=== PATIENT | male | born 1980 | race Caucasian/White ===

== ENCOUNTER 2020-12-14 03:37 | Outpatient (CLI) | payer BC, SELFPAY ==
[2020-12-15 14:17] LABS: COVID-19 RT-PCR UVMMC Result Negative (Negative)
== END 2020-12-14 03:38 | disposition home or self-care (01) ==
PROVIDERS: PCP Family Medicine; Visit Provider Family Medicine
DX: Z20.828 Contact with and (suspected) exposure to other viral communicable diseases (principal)
CPT/HCPCS: U0003

== ENCOUNTER 2023-03-22 06:13 | Day surgery (SDC) | payer BC, SELFPAY ==
[2023-03-22 06:15] VITALS: BP 145/91; PULSE 99; RESP 18; TEMP 36.5; O2SAT 100
[2023-03-22] MEDS: Cephalexin 500 MG CAP 1000 MG PO (06:45)
--- NOTE | 2023-03-22 07:38 | PDOC.DSDIS_ITS ---
Date of service: 03/22/23 Time of Service: 07:40 Discharge Plan Disposition Patient Disposition: Home Condition: Good Discharge Details Reason For Visit: Bilateral lipomas of the forearms Attending Provider: Alverto Mcneill Primary Care Provider: Lucien Ricketts Home Meds and New Rx's Prescriptions: New acetaminophen 500 mg tablet 500 mg PO Q6H PRN (Reason: pain) Qty: 60 2RF ibuprofen 600 mg tablet 600 mg PO TID PRN (Reason: pain) Qty: 60 0RF Continued cholecalciferol (vitamin D3) 3,000 unit tablet 3,000 unit PO DAILY albuterol sulfate 90 mcg/actuation HFA aerosol inhaler 2 puff inhalation Q4H PRN (Reason: shortness of breath or wheezing) Qty: 6.7 1RF Rx Instructions: Dispense brand best covered under insurance nicotine (polacrilex) [Nicorette] 2 mg gum 2 mg buccal Q2H Qty: 40 1RF Discontinued acetaminophen 325 mg tablet 325 mg PO QID PRN Discharge Instructions Additional Instructions: Lipoma Excision Discharge Instructions Activity: Gentle motion of the elbow, hand, wrist, and fingers is okay and encouraged after the first few days, but no repetitive activities nor heavy lifting. You may apply ice. Medications: - You should take Tylenol and Ibuprofen around the clock as needed for disco mfort Dressings: - The initial surgical dressing should stay in place for 2 days. It may then be removed and kept clean and dry. You should cover with a bandaide - You may shower after 2 days and get the wound wet. Follow-up: 10 days Referrals: Alverto Mcneill MD [ [facility] STAFF PHYSICIAN] - Activity:: Elevate Remove Dressings/Wound Care:: 48 hours Shower/Bathe:: 48 hours Diet:: As Tolerated Discharge Orders Discharge Orders: Discharge Order (Routine); Ordered 03/22/23 Ordered By: Quin Callahan
[2023-03-22] MEDS: Sodium Bicarbonate 50 MEQ/50 ML VIAL (07:53)
[2023-03-22] MEDS: Lidocaine 1% Multi-Dose W/EPI 1/100,000 50 ML VIAL (07:53)
[2023-03-22 08:12] VITALS: BP 154/89; PULSE 92; RESP 18; TEMP 37; O2SAT 97
--- NOTE | 2023-03-22 19:30 | ROE_ITS ---
Date of service: 03/22/23 Time of Service: 07:50 Operative Note Operative Note DATE OF PROCEDURE: 03/23/23 PRE-OP DIAGNOSIS: Bilateral Forearm Lipomas PROCEDURE: Excision of lipoma, bilateral forearm SURGEON: Alverto Mcneill ANESTHESIA TYPE: Local By Surgeon Refer to Anesthesia Record ESTIMATED BLOOD LOSS: 5 PATHOLOGY: none sent TOURNIQUET TIME: 0 COMPLICATIONS: None Patient was transported to: same day Patient's condition: stable Indications: Cliff is a 42-year-old who I saw previously in the office with lipomas of bilateral forearms. They have slowly gotten larger and become more problematic for him. He desired to have them removed. Once again I reviewed the technical features of the lipoma removal. I reviewed the risk to include bleeding, infection, pain, stiffness, damage to superficial nerves, recurrence or incomplete resection. Despite these risks, he elected to proceed. Findings: Irregularly-shaped lipomas are present in both bilateral forearms. Each 1 measured roughly 3 x 2 x 2 cm. Procedure Description: Cliff was greeted in the preoperative holding area. His identity was confirmed the correct site identified and marked. The consent was reviewed the patient and signed. Attempting to the operating room. Preflight antibiotics were given orally. A timeout was performed for safe surgery. Starting with the left forearm, the surgical site was prepped with ChloraPrep. Standard draping was performed around the surgical site. This was then anesthetized with 1% lidocaine with epinephrine buffered with sodium bicarbonate. Once it is set up fully the skin was incised longitudinally overlying the central portion of the lipoma. Blunt dissection was carried down deeper where the capsule of the lipoma was encountered. Once the lipoma was visible through the capsule it was expressed from the wound. Gentle traction of the lipoma was able to fully release adhesions between the lipoma and surrounding tissues. This was able to be removed in whole measuring roughly 3 x 2 x 2 cm although it was quite irregular in shape. Had a normal lipoma appearance without any stranding or adhesions or vascularity or internal septations apparent. The wound was then irrigated. The skin was closed with a 4-0 Monocryl in a running, subcuticular pattern. This was reinforced with skin glue. This area was dressed with 4 x 4's, Kerlix and Forest wrap for some compression on the site. Turning to the right forearm, the patient was rotated within the room. The right arm was placed on a hand table. Surgical site was prepped ChloraPrep. Standard draping was made around the proposed incision site. A longitudinal 2 to 3 cm incision was made overlying the skin. Blunt dissection carried down to the capsule of the lipoma was identified and then incised. Lipoma was seen. This seemed to have slightly more extensions underneath the skin than the left- sided. Nevertheless, was able to express it through the wound and then slowly excise any adhesions between the lipoma and surrounding tissues. He was able to be removed fully with one portion breaking during the excision. However, the wound is inspected and there is no residual lipoma remaining. The wound was thoroughly irrigated. A buried 3-0 Vicryl was placed to close the deep space. The skin was closed with a running, subcuticular 4-0 Monocryl. This was reinforced skin glue. The wound was dressed with 4 x 4's, Kerlix, and Forest wrap. He tolerated the procedure well. He had no complications. [facility] a [facility] condition.
== END 2023-03-22 08:25 | disposition home or self-care (01) ==
PROVIDERS: PCP Family Medicine; Visit Provider Student in an Organized Health Care Education/Training Program
PROC: (CPT 11403; principal; 2023-03-22 07:30)
DX: D17.22 Benign lipomatous neoplasm of skin and subcutaneous tissue of left arm (principal); D17.21 Benign lipomatous neoplasm of skin and subcutaneous tissue of right arm
CPT/HCPCS: 11403 ×2

== ENCOUNTER 2024-08-07 08:27 | Outpatient (CLI) | payer BC, SELFPAY ==
--- NOTE | 2024-08-07 08:15 | RT.EKG_ITS ---
APPROVED REPORT Exam: Resting ECG Reason for Exam: hears pulse in ears Patient Location: O HR:96 bpm ECG Measurements Heart Rate 96 AXIS HI 155 P 74 QRSd 92 QRS 27 QT 342 T 43 QTc 433 Conclusion Sinus rhythm...normal P axis, V-rate 50- 99 Probable left atrial enlargement...P >50mS, <-0.10mV V1 ST elev, probable normal early repol pattern...ST elevation, age<55
== END 2024-08-07 08:28 | disposition home or self-care (01) ==
LOC: DI.KIM 08:29
PROVIDERS: PCP Family Medicine; Visit Provider Nurse Practitioner
DX: R00.2 Palpitations (principal)
CPT/HCPCS: 93010

== ENCOUNTER 2024-08-16 01:20 | Outpatient (CLI) | payer BC, SELFPAY ==
--- OUTSIDE RECORDS SUMMARY | 2024-08-16 01:28 | XMS_ITS | Encounter Summary ---
Author Organization [facility] Address [facility] [place] [address] Care Team Providers Care Casting Molder Name Role Phone Arely Landers MD Primary Care Provider [phone] Reason for Visit * Reason Onset Date Comments Medication Refill 01/10/2017 Encounter Details Date Type Department Care Team (Late st Contact Info) Description 01/10/2017 Refill [place] [id number] Taiwo Cifuentes MD [facility] [place] [address] HNP (herniated nucleus pulposus), lumbar Social History Tobacco Use Types Packs/Day Years Used Date Smoking Tobacco: Never Assessed Sex and Gender Information Value Date Recorded Sex Assigned at Not on file Gender Identity Not on file Sexual Orientation Not on file documented as of this encounter Plan of Treatment Not on file documented as of this encounter Visit Diagnoses Diagnosis HNP (herniated nucleus pulposus), lumbar Displacement of lumbar intervertebral disc without myelopathy documented in this encounter Care Teams Casting Molder Relationship Specialty Start Date End Date Arely Landers MD [address] [place] [address] PCP - General 07/27/10 03/23/17 documented as of this encounter
--- OUTSIDE RECORDS SUMMARY | 2024-08-16 01:28 | XMS_ITS | Referral Summary ---
Author Organization [facility] Address [address] [place] [address] Care Team Providers Care Medical Microbiologist Name Role Phone Unavailable Primary Care Provider Unavailabl e Social History Tobacco Use Types Packs/Day Years Used Date Smoking Tobacco: Never Assessed Sex and Gender Information Value Date Recorded Sex Assigned at Not on file Legal Sex Male 19:22 EDT Gender Identity Not on file Sexual Orientation Not on file Plan of Treatment Not on file
--- OUTSIDE RECORDS SUMMARY | 2024-08-16 01:28 | XMS_ITS | Encounter Summary ---
Author Organization [facility] Address [address] [place] [address] Care Team Providers Care Vessel Liner Name Role Phone Unavailable Primary Care Provider Unavailabl e Encounter Details Date Type Department Care Team (Late st Contact Info) Description 12/14/2020 Lab Requisition [facility] Pathology & Laboratory Medicine - [facility] [address] [place] [address] Outr Resulting Lab, Provider Social History Tobacco Use Types Packs/Day Years Used Date Smoking Tobacco: Never Assessed Sex and Gender Information Value Date Recorded Sex Assigned at Not on file Legal Sex Male 19:22 EDT Gender Identity Not on file Sexual Orientation Not on file documented as of this encounter Plan of Treatment Not on file documented as of this encounter Procedures Procedure Name Priority Date/Time Associated Diagnosis Comments ZZCOVID-19 TEST [facility] PCR Today 12/14/2020 8:13 EDT COVID-19 TESTING Routine 12/14/2020 8:13 EDT documented in this encounter Results * COVID-19 TEST [facility] PCR (12/14/2020 8:13 EDT) Swab ENTIRE NASOPHARYNX / Unknown 12/14/2020 8:13 EDT 12/14/2020 15:59 EDT us Provider Outr Resulting Lab MICROBIOLOGY - GENER AL ORDERABLES Final Result [facility] [address] [place] [address] * COVID-19 TESTING (12/14/2020 8:13 EDT) COVID-19 rt-PCR Result Negative Negative 12/15/2020 14:10 EDT [facility] Comment: This test has not been FDA cleared or approved. This test has been authorized by FDA under an EUA for use by authorized laboratories. This test has been authorized only for detection of nucleic acid from 2019-nCoV, not for any other viruses or pathogens. This test is only authorized for the duration of the declaration that circumstances exist justifying the authorization of emergency use of in vitro diagnostic tests for detection and/or diagnosis of 2019-nCoV under section 564(b)(1) of Act, 21 U.S.C ?? 360bbb-3(b) (1), unless the authorization is terminated or revoked sooner. Negative results do not preclude 2019-nCoV infection and should not be used as the sole basis for treatment or other patient management decisions. Negative results must be combined with clinical observations, patient history, and epidemiological information. Testing was performed using the annika SARS-CoV-2 assay ([employer] on the Annika 6800 System Performing Lab Annika 6800 [facility] 12/15/2020 14:10 EDT [facility] Swab 12/14/2020 8:13 EDT 12/14/2020 15:59 EDT us Provider Outr Resulting Lab MICROBIOLOGY - GENER AL ORDERABLES Final Result [facility] [address] [place] [address] documented in this encounter Visit Diagnoses Not on filedocumented in this encounter
--- OUTSIDE RECORDS SUMMARY | 2024-08-16 01:28 | XMS_ITS | Encounter Summary ---
Author Organization [facility] Address [facility] [place] [address] Care Team Providers Care Anesthesiologists' Assistant Name Role Phone Arely Landers MD Primary Care Provider [phone] Encounter Details Date Type Department Care Team (Latest Contact Info) Description 01/17/2017 - 01/17/2017 11:59 PM EDT Hospital Encounter Radiology Library at [facility] [place] [address] Bill Abad MD [facility] [place] [address] Pain Discharge Disposition: Home Social History Tobacco Use Types Packs/Day Years Used Date Smoking Tobacco: Never Assessed Sex and Gender Information Value Date Recorded Sex Assigned at Not on file Gender Identity Not on file Sexual Orientation Not on file documented as of this encounter Medications at Time of Discharge Medication Sig Dispensed Refills Start Date End Date FLUoxetine (PROZAC) 20 mg capsule 20 MG = 1 Capsule(s), PO, Once daily 07/13/2010 03/24/2017 Disulfiram (ANTABUSE) 500 mg Tab 500 MG = 1 Tablet(s), PO, Once daily 07/13/2010 03/24/2017 documented as of this encounter Plan of Treatment Not on file documented as of this encounter Procedures Procedure Name Priority Date/Time Associated Diagnosis Comments FILM LIBRARY STORAGE ONLY DX SPINE Routine 01/17/2017 12:00 AM EDT Pain documented in this encounter Results * Film Library- Storage Only DX Spine (01/17/2017 12:00 AM EDT) Narrative [facility] - 03/22/2017 9:23 AM EDT This exam is for storage only and is auto-finalizing. Bill Abad MD IM FILM LIBRARY ORD ERABLES Performing Organization Address City/State/[facility] Co de Phone Number [place], [place] documented in this encounter Visit Diagnoses Diagnosis Pain Generalized pain documented in this encounter Care Teams Anesthesiologists' Assistant Relationship Specialty Start Date End Date Arely Landers MD [address] [place] [address] PCP - General 07/27/10 03/23/17 documented as of this encounter
--- OUTSIDE RECORDS SUMMARY | 2024-08-16 01:28 | XMS_ITS | Encounter Summary ---
Author Organization [facility] Address [facility] [place] [address] Care Team Providers Care Vacuum Furnace Operator Name Role Phone Faviola Yusuf LILY Primary Care Provider [phone] Reason for Visit * Reason Comments Low Back Pain Left Leg Pain * Consultation (Routine) - Closed Specialty Diagnoses / Procedures Referred By Contac t Referred To Contact Orthopaedics Diagnoses lumbar HNP/ 12/2016 MRI [facility]/ XR prior Taiwo Cifuentes MD [facility] [place] [address] Bill Abad MD [facility] [place] [place] [address] Referral ID Status Reason Start Date Expiration Date V isits Requested Visits Authorized [id number] Closed Consult, Test & Treat 03/21/2017 03/21/2018 1 1 Encounter Details Date Type Department Care Team (Late st Contact Info) Description 03/24/2017 2:40 PM EDT Office Visit [facility] [place] [phone] Bill Abad MD [facility] [place] [place] [address] HNP (herniated nucleus pulposus), lumbar Social History Tobacco Use Types Packs/Day Years Used Date Smoking Tobacco: Every Day Cigarettes Smokeless Tobacco: Never Sex and Gender Information Value Date Recorded Sex Assigned at Not on file Gender Identity Not on file Sexual Orientation Not on file documented as of this encounter Last Filed Vital Signs Vital Sign Reading Time Taken Comments Blood Pressure 126/69 03/24/2017 2:11 PM EDT Pulse - - Temperature - - Respiratory Rate - - Oxygen Saturation - - Inhaled Oxygen Concentration - - Weight 79.4 kg (175 lb) 03/24/2017 2:11 PM EDT Height 185.4 cm (6' 1) 03/24/2017 2:11 PM EDT Body Mass Index 23.09 03/24/2017 2:11 PM EDT documented in this encounter Progress Notes * Bill Abad MD - 03/24/2017 2:40 PM EDT Taiwo Cifuentes MD [facility] [place] [address] Faviola Yusuf, RING CUTTER LATHE OPERATOR [address] , [facility] [id number] Dear Colleagues, I had the pleasure of seeing this patient at the [facility] for surgical evaluation. DIAGNOSIS: Left L5-S1 disc herniation, L5-S1 associated left lower extremity radicular symptoms. DURATION OF SYMPTOMS: 7 to 10 years with an increase 1 year ago. PRIOR TREATMENTS: Physical therapy greater than 6 months, clinical care manager evaluation by Dr. Cifuentes with epidural injection that gave him basically total relief where he felt great for approximately 3 weeks. 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 PHYSICAL EXAMINATION: This is a patient with a positive straight leg raise, approximately 60 degrees, otherwise neurologically intact. No pain with internal derangement of the hips. Hip flexors, quads, anterior tib, gastroc and EHL all intact. PROGNOSTIC FACTORS: BMI 23.1. Current everyday smoker, last attempt to quit in the past. About a 1/2 pack a day. Nondiabetic. No prior surgery. IMAGING: MRI from 12/14/2016 shows a large left-sided disc herniation at L5-S1 with severe compression of the S1 nerve root. PLAN: At this time is to repeat the MRI and if positive then consider microdiscectomy. I talked about the risks and benefits of microdiscectomy including the risks of small fluid leak, persistent symptoms, recurrent disc herniation, back pain. All questions were answered. The goal of the MRI is to document that there still a large disc herniation for surgical intervention. All questions were answered. Thank you for the referral. It was a pleasure meeting this patient. Sincerely, Bill Varmare MD MS Hvac Installation Technician - Orthopedic Spine Surgery / Spine Center Service Car Driver - Department of Orthopedic Surgery / Academics and Research Curriculum Writer - [facility] 03/27/2017 Spine Center Response Trends Patient-reported scores: myD-H Spine Questionnaire responses 03/24/2017 Oswestry Disability Index (Range: 0-100) 20 (Minimal disability) PROMIS-10 Physical Health Score 44.9 PROMIS-10 Mental Health Score 50.8 documented in this encounter Plan of Treatment Not on file documented as of this encounter Visit Diagnoses Diagnosis HNP (herniated nucleus pulposus), lumbar Displacement of lumbar intervertebral disc without myelopathy documented in this encounter Care Teams Vacuum Furnace Operator Relationship Specialty Start Date End Date Faviola Yusuf APRN PCP - General Family Medicine 03/24/17 04/03/19 documented as of this encounter
--- OUTSIDE RECORDS SUMMARY | 2024-08-16 01:28 | XMS_ITS | Encounter Summary ---
Author Organization [facility] Address [facility] [place] [address] Care Team Providers Care Retail Sales Assistant Name Role Phone Arely Landers MD Primary Care Provider [phone] Reason for Referral * Consultation (Routine) - Closed Specialty Diagnoses / Procedures Referred By Alisa rios Referred To Contact Orthopaedics Diagnoses lumbar HNP/ 12/2016 MRI [facility]/ XR prior Taiwo Cifuentes MD [facility] [place] [address] Bill Abad MD [facility] [place] [address] Referral ID Status Reason Start Date Expiration Date V isits Requested Visits Authorized [id number] Closed Consult, Test & Treat 03/21/2017 03/21/2018 1 1 Reason for Visit * Reason Onset Date Comments Medication Refill 03/21/2017 Encounter Details Date Type Department Care Team (Late st Contact Info) Description 03/21/2017 Ref[place] [address] Taiwo Cifuentes MD [facility] [place] [address] HNP (herniated nucleus pulposus), lumbar Social History Tobacco Use Types Packs/Day Years Used Date Smoking Tobacco: Never Assessed Sex and Gender Information Value Date Recorded Sex Assigned at Not on file Gender Identity Not on file Sexual Orientation Not on file documented as of this encounter Plan of Treatment Scheduled Referrals Name Type Priority Associated Diagnoses Orde r Schedule Referral to Spine Center Outpatient Referral Routine Hnp (Herniated Nucleus Pulposus), Lumbar Ordered: 03/21/2017 documented as of this encounter Visit Diagnoses Diagnosis HNP (herniated nucleus pulposus), lumbar Displacement of lumbar intervertebral disc without myelopathy documented in this encounter Care Teams Retail Sales Assistant Relationship Specialty Start Date End Date Arely Landers MD [address] [place] [id number] PCP - General 07/27/10 03/23/17 documented as of this encounter
--- OUTSIDE RECORDS SUMMARY | 2024-08-16 01:28 | XMS_ITS | Encounter Summary ---
Author Organization [facility] Address [facility] [place] [address] Care Team Providers Care Material Flow Engineer Name Role Phone Arely Landers MD Primary Care Provider Encounter Details Date Type Department Care Team (Late st Contact Info) Description 07/02/2010 Orders Only Lab [facility] [place] [address] Connie Pruitt MD [facility] [place] [address] Social History Tobacco Use Types Packs/Day Years Used Date Smoking Tobacco: Never Assessed Sex and Gender Information Value Date Recorded Sex Assigned at Not on file Gender Identity Not on file Sexual Orientation Not on file documented as of this encounter Plan of Treatment Not on file documented as of this encounter Procedures Procedure Name Priority Date/Time Associated Diagnosis Comments DIFFERENTIAL, AUTOMATED Routine 07/03/2010 6:35 AM EDT CREATININE Routine 07/03/2010 6:35 AM EDT CBC (WITH DIFF) Routine 07/03/2010 6:35 AM EDT BUN Routine 07/03/2010 6:35 AM EDT PHOSPHORUS Routine 07/03/2010 6:35 AM EDT MAGNESIUM Routine 07/03/2010 6:35 AM EDT GLUCOSE Routine 07/03/2010 6:35 AM EDT CALCIUM Routine 07/03/2010 6:35 AM EDT ELECTROLYTES PANEL Routine 07/03/2010 6: 35 AM EDT DIFFERENTIAL, AUTOMATED STAT 07/02/2010 4:10 AM EDT CREATININE STAT 07/02/2010 4:10 AM EDT ABO/RH TYPING STAT 07/02/2010 4:10 AM EDT RAPID DRUG SCREEN W/O CONFIRMATION, URINE STAT 07/02/2010 4:10 AM EDT URINALYSIS WITH REFLEX CULTURE STAT 07/02/2010 4:10 AM EDT APTT STAT 07/02/2010 4:10 AM EDT PROTHROMBIN TIME STAT 07/02/2010 4:10 AM EDT CBC (WITH DIFF) STAT 07/02/2010 4:10 AM EDT ANTIBODY SCREEN STAT 07/02/2010 4:10 AM EDT BUN STAT 07/02/2010 4:10 AM EDT GLUCOSE STAT 07/02/2010 4:10 AM EDT ETHANOL LEVEL STAT 07/02/2010 4:10 AM EDT ELECTROLYTES PANEL STAT 07/02/2010 4: 10 AM EDT documented in this encounter Results * PHOSPHORUS (07/03/2010 6:35 AM EDT) [facility] Signature Phosphorus 3.1 2.5 - 4.5 mg/dL [facility] Blood specimen (specimen) 07/03/2010 6:35 AM EDT 07/03/2010 6:57 AM EDT Michelet Manley MD CHEMISTRY ORDERABLES Performing Organization Address [facility] de Phone Number [facility] M[facility] * MAGNESIUM (07/03/2010 6:35 AM EDT) Magnesium 0.85 0.69 - 1.07 mmol/L CERNER MILLENNIUM Blood specimen (specimen) 07/03/2010 6:35 AM EDT 07/03/2010 6:57 AM EDT Michelet Manley MD CHEMISTRY ORDERABLES Performing Organization Address [facility] de Phone Number [facility] * (ABNORMAL) ELECTROLYTE PANEL (07/03/2010 6:35 AM EDT) Sodium 142 135 - 145 mmol/L CERNER MILLENNIUM Potassium 3.4(L) 3.5 - 5.0 mmol/L CERNER MILLENNIUM Comment: Please note: ??Patients with WBC >100,000 may have falsely elevated Potassium levels. ??For accurate Potassium quantification in these patients send serum separator tube (gold top) for subsequent determinations. ??Contact the Clinical Chemistry Laboratory if there are any questions. Chloride 105 98 - 107 mmol/L CERNER MILLENNIUM Carbon Dioxide 30 22 - 31 mmol/L CERNER MILLENNIUM Anion Gap 7 5 - 15 mmol/L [facility] MILLENNIUM Blood specimen (specimen) 07/03/2010 6:35 AM EDT 07/03/2010 6:57 AM EDT Michelet Manley MD CHEMISTRY ORDERABLES Performing Organization Address [facility] Co de Phone Number [facility] * CREATININE, SERUM (07/03/2010 6:35 AM EDT) Creatinine 1.02 0.80 - 1.50 mg/dL CERNER MILLENNIUM Est Glomerular Filtration Rate >60 >=60 CERNER MILLENNIUM Comment: The National Kidney Disease Education Program (NKDEP) has recommended all laboratories report estimated GFR (eGFR) along with plasma creatinine measurements to assist you with recognition of early kidney disease. Caveats: ??Plasma creatinine should be at steady-state (unchanged within the past week). ??Patient age > = 18 years, and for Americans multiply eGFR by 1.2. At present, NKDEP does NOT recommend using the MDRD equation for drug dosing purposes and pharmacists should continue to use their current dosing methods. In addition, numerical eGFR values greater than 60 ml/min/1.73 square meters should be treated as > 60, and not an exact number due to greater inaccuracies at these higher values. Per NKDEP, they classify normal renal function as any GFR >60ml/min/1.73 square meters; chronic kidney disease when GFR <60, and renal failure when GFR <15. ??This calculation may not be valid for patients with atypical muscle mass (very lean or obese), acute renal failure, and in patients with diabetic kidney disease. References: http://nkdep.nih.gov/resources/NKDEP_Suggestn4Labs_0606_508.pdf http://www.kidney.org/professionals/kls/pdf/faq_gfr.pdf Blood specimen (specimen) 07/03/2010 6:35 AM EDT 07/03/2010 6:57 AM EDT Michelet Manley MD CHEMISTRY ORDERABLES Performing Organization Address [facility] de Phone Number [facility] * CALCIUM (07/03/2010 6:35 AM EDT) Calcium 8.9 8.5 - 10.5 mg/dL [facility] Blood specimen (specimen) 07/03/2010 6:35 AM EDT 07/03/2010 6:57 AM EDT Michelet Manley MD CHEMISTRY ORDERABLES Performing Organization Address [facility] de Phone Number [facility] * BUN (07/03/2010 6:35 AM EDT) Blood Urea Nitrogen 15 10 - 20 mg/dL [facility] Blood specimen (specimen) 07/03/2010 6:35 AM EDT 07/03/2010 6:57 AM EDT Michelet Manley MD CHEMISTRY ORDERABLES NURY CRODONIUM * GLUCOSE, RANDOM (07/03/2010 6:35 AM EDT) Glucose 77 <=199 mg/dL [facility] J[facility] Comment:Diabetes: >=200 mg/d L plus symptoms Blood specimen (specimen) 07/03/2010 6:35 AM EDT 07/03/2010 6:57 AM EDT Michelet Manley MD CHEMISTRY ORDERABLES Performing Organization Address City/[facility] Co de Phone Number NURY CORDONIUM * REFLEX LAB-A-DIFF (07/03/2010 6:35 AM EDT) Neutrophil % 58.6 34.0 - 71.0 % CERNER MILLENNIUM Neutrophil Absolute 5.54 1.50 - 6.30 x10(3)/mcL CERNER MILLENNIUM Lymph % 30.1 19.0 - 53.0 % CERNER MILLENNIUM Lymphocytes Abs 2.9 1.0 - 3.6 x10(3)/mcL CERNER MILLENNIUM Monocyte % 8.6 4.0 - 13.0 % CERNER MILLENNIUM Monocyte Abs 0.8 0.2 - 1.0 x10(3)/mcL CERNER MILLENNIUM Eos % 2.3 0.0 - 7.0 % CERNER MILLENNIUM Eosinophils Abs 0.2 0.0 - 0.5 x10(3)/mcL CERNER MILLENNIUM Basophil % 0.3 0.0 - 2.0 % CERNER MILLENNIUM Baso Absolute 0.0 0.0 - 0.2 x10(3)/mcL CERNER MILLENNIUM Immature Gran % 0.10 0.00 - 0.66 % CERNER MILLENNIUM Comment: Immature granulocytes(IG's)percentage and absolute count will include metamyelocytes, myelocytes, and promyelocytes. Blood smears from CBC's yielding IG's will be scanned manually for concordance. If this scan disagrees with the automated IG or if promyelocytes are noted, a manual differential will be performed. Immature Gran Absolute 0.01 0.00 - 0.05 x10(3)/mcL [facility] MILLENNIUM Blood specimen (specimen) 07/03/2010 6:35 AM EDT 07/03/2010 6:57 AM EDT Michelet Manley MD HEMATOLOGY ORDERABLE S Performing Organization Address City/[facility]/ZIP Co de Phone Number NURY JETTENNIUM * (ABNORMAL) CBC (07/03/2010 6:35 AM EDT) White Blood Cell 9.5 4.0 - 10.0 x10(3)/mc L CERNER MILLENNIUM Red Blood Cell 4.88 4.63 - 6.08 x10(6)/mc L [facility]ERN[facility] MILLENNIUM Hemoglobin 14.7 13.7 - 17.5 gm/dL [facility]ERN[facility] MILLENNIUM Hematocrit 44.5 40.0 - 51.0 % CERNER MILLENNIUM Mean Cell Volume 91.2 79.0 - 92.0 fL CERNER MILLENNIUM Mean Cell Hemoglobin 30.1 25.6 - 32.2 pg CERNER MILLENNIUM Mean Cell Hemoglobin Concentration 33.0 32.0 - 36.5 gm/dL CERNER MILLENNIUM Platelet 132(L) 145 - 370 x10(3)/mc L CERNER MILLENNIUM RDW Standard Deviation 41.0 35.0 - 46.0 fL CERNER MILLENNIUM RDW coefficient of variation 12.3 10.9 - 14.4 % CERNER MILLENNIUM Mean Platelet Volume 11.2 9.0 - 12.0 fL [facility] MILLENNIUM Blood specimen (specimen) 07/03/2010 6:35 AM EDT 07/03/2010 6:57 AM EDT Michelet Manley MD HEMATOLOGY ORDERABLE S NURY CORDONIUM * REFLEX LAB-ANTIBODY SCREEN (07/02/2010 4:10 AM EDT) Ab Screen Interp Negative CERNER MILLENNIUM Expires at [id number] on: [id number] [facility] MILLENNIUM Blood specimen (specimen) 07/02/2010 4:10 AM EDT 07/02/2010 4:27 AM EDT Connie Pruitt MD BLOOD BANK LAB ORDER COLBY Performing Organization Address City/[facility] Co de Phone Number CERNER JOHNIEENNIUM * REFLEX LAB-ABO/RH (07/02/2010 4:10 AM EDT) ABORH Type B Pos CERNER MILLENNIUM Blood specimen (specimen) 07/02/2010 4:10 AM EDT 07/02/2010 4:27 AM EDT Connie Pruitt MD BLOOD BANK LAB ORDER COLBY Performing Organization Address [facility] de Phone Number CERNER MILLENNIUM * (ABNORMAL) ELECTROLYTE PANEL (07/02/2010 4:10 AM EDT) Sodium 145 135 - 145 mmol/L CERNER MILLENNIUM Potassium 3.8 3.5 - 5.0 mmol/L CERNER MILLENNIUM Comment: Please note: ??Patients with WBC >100,000 may have falsely elevated Potassium levels. ??For accurate Potassium quantification in these patients send serum separator tube (gold top) for subsequent determinations. ??Contact the Clinical Chemistry Laboratory if there are any questions. Chloride 112(H) 98 - 107 mmol/L CERNER MILLENNIUM Carbon Dioxide 24 22 - 31 mmol/L CERNER MILLENNIUM Anion Gap 9 5 - 15 mmol/L [facility]ERN[facility] MILLENNIUM Blood specimen (specimen) 07/02/2010 4:10 AM EDT 07/02/2010 4:27 AM EDT Connie Pruitt MD CHEMISTRY ORDERABLES Performing Organization Address City/[facility] Co de Phone Number [facility] JETT[facility]NIUM * CREATININE, SERUM (07/02/2010 4:10 AM EDT) Creatinine 0.90 0.80 - 1.50 mg/dL CERNER MILLENNIUM Est Glomerular Filtration Rate >60 >=60 CERNER MILLENNIUM Comment: The National Kidney Disease Education Program (NKDEP) has recommended all laboratories report estimated GFR (eGFR) along with plasma creatinine measurements to assist you with recognition of early kidney disease. Caveats: ??Plasma creatinine should be at steady-state (unchanged within the past week). ??Patient age > = 18 years, and for Americans multiply eGFR by 1.2. At present, NKDEP does NOT recommend using the MDRD equation for drug dosing purposes and pharmacists should continue to use their current dosing methods. In addition, numerical eGFR values greater than 60 ml/min/1.73 square meters should be treated as > 60, and not an exact number due to greater inaccuracies at these higher values. Per NKDEP, they classify normal renal function as any GFR >60ml/min/1.73 square meters; chronic kidney disease when GFR <60, and renal failure when GFR <15. ??This calculation may not be valid for patients with atypical muscle mass (very lean or obese), acute renal failure, and in patients with diabetic kidney disease. References: http://nkdep.nih.gov/resources/NKDEP_Suggestn4Labs_0606_508.pdf http://www.kidney.org/professionals/kls/pdf/faq_gfr.pdf Blood specimen (specimen) 07/02/2010 4:10 AM EDT 07/02/2010 4:27 AM EDT Connie Pruitt MD CHEMISTRY ORDERABLES Performing Organization Address City/[facility] Co de Phone Number [facility] * BUN (07/02/2010 4:10 AM EDT) Blood Urea Nitrogen 10 10 - 20 mg/dL [facility] Blood specimen (specimen) 07/02/2010 4:10 AM EDT 07/02/2010 4:27 AM EDT Connie Pruitt MD CHEMISTRY ORDERABLES Performing Organization Address City/[facility] Co de Phone Number [facility] * GLUCOSE, RANDOM (07/02/2010 4:10 AM EDT) Glucose 83 <=199 mg/dL [facility] Comment:Diabetes: >=200 mg/d L plus symptoms Blood specimen (specimen) 07/02/2010 4:10 AM EDT 07/02/2010 4:27 AM EDT Connie Pruitt MD CHEMISTRY ORDERABLES Performing Organization Address [facility] Phone Number [facility] * APTT (07/02/2010 4:10 AM EDT) Partial Thromboplastin Time 28 25 - 37 sec [facility] Comment: Recommended therapeutic PTT range for full dose unfractionated heparin is 80-114 seconds. Blood specimen (specimen) 07/02/2010 4:10 AM EDT 07/02/2010 4:28 AM EDT Connie Pruitt MD HEMATOLOGY ORDERABLE S Performing Organization Address [facility] Phone Number [facility] * (ABNORMAL) PROTIME-INR (07/02/2010 4:10 AM EDT) Prothrombin Time 15.1(H) 11.8 - 15.0 sec [facility] Comment: [facility] Transfusion Committee Guidelines: INR less than 2.0, PTT less than OR equal to 43.5 seconds, or Fibrinogen greater than or equal to 100 mg/dl indicate adequate procoagulant activity for hemostasis in patients without underlying bleeding disorders. International Normalization Ratio 1.2(H) 0.9 - 1.1 [facility] Blood specimen (specimen) 07/02/2010 4:10 AM EDT 07/02/2010 4:28 AM EDT Connie Pruitt MD HEMATOLOGY ORDERABLE S Performing Organization Address [facility] Phone Number [facility] * TOXICOLOGY SCREEN, URINE (07/02/2010 4:10 AM EDT) U OLE Screen Urine drug of abuse results: ?Methadone Negative_ ?Benzodiazepines Negative ??Cocaine metabolites Negative ? Amphetamines Negative Marijuana metabolites Negative ?Opiates Negative ? Barbiturates Negative ? Tricyclics Negative The urine drug testing device screens for: Amphetamines (AMP), Opiates (OPI), Cocaine metabolite (CAIN), Marijuana metabolites (THC), Benzodiazepines (BZO), Barbiturates (BAR), Methadone (MTD)and Tricyclic antidepressants (TCA). ??The amphetamine screen detects either D-amphetamine or D-methamphetamine abuse. ??Be aware that this is only a QUALITATIVE SCREEN and must be used in conjunction ??with your clinical assessment of the patient. ??Results are NOT routinely confirmed by highly-defined methods, and are therefore reported as presumptive positive screens -such qualitative SCREEN RESULTS CANNOT BE USED FOR MEDICO-LEGAL purposes. ??As with any qualitative drug screening device, there can be occasional false positive readings from similar or dissimilar crossreacting drugs. CERNER MILLENNIUM Urine specimen (specimen) 07/02/2010 4:10 AM EDT 07/02/2010 4:27 AM EDT Connie Pruitt MD URINE ORDERABLES [facility] [employer] SolutionsENNI[facility] * URINALYSIS WITH MICROSCOPIC (07/02/2010 4:10 AM EDT) Glucose, Urine Dipstick Negative Negative mg/dL CERNER MILLENNIUM Protein, Urine Dipstick Trace Neg mg/dL CERNER MILLENNIUM Bilirubin, Urine Dipstick Negative Negative mg/dL CERNER MILLENNIUM Urobilinogen, Urine Dipstick Normal mg/dL CERNER MILLENNIUM pH, Urn (dipstick) 6.5 5.0 - 8.0 CERNER MILLENNIUM Blood, Urine Dipstick Small Neg CERNER MILLENNIUM Ketone, Urine Dipstick Negative mg/dL CERNER MILLENNIUM Nitrite, Urine Dipstick Negative CERNER MILLENNIUM Leukocytes, Urine Dipstick Negative mcL CERNER MILLENNIUM Appearance, Urine Dipstick Hazy Clear CERNER MILLENNIUM Specific [place] Urine Automated 1.010 1.002 - 1.030 CERNER MILLENNIUM Color, Urine Dipstick Yellow Yellow CERNER MILLENNIUM RBC, Urine 2 0 - 3 /HPF CERNER MILLENNIUM WBC, Urine 2 0 - 3 /HPF CERNER MILLENNIUM Hyaline Casts, Urine 6 /LPF CERNER MILLENNIUM Urine specimen (specimen) 07/02/2010 4:10 AM EDT 07/02/2010 4:28 AM EDT Connie Pruitt MD URINE ORDERABLES Performing Organization Address [facility] de Phone Number NURY JETTENNIUM * ETHANOL (07/02/2010 4:10 AM EDT) Ethanol 156 mg/L CERNER MILLENNIUM Comment: Greater than 800 mg/L (0.08%) should be considered intoxicated. 3400 to 4500 mg/L (0.34 - 0.45%) is considered severe intoxication. Greater than 5500 mg/L (0.55%) is usually fatal. Blood specimen (specimen) 07/02/2010 4:10 AM EDT 07/02/2010 4:29 AM EDT Connie Pruitt MD CHEMISTRY ORDERABLES Performing Organization Address [facility] de Phone Number NURY CORDONIUM * (ABNORMAL) REFLEX LAB-A-DIFF (07/02/2010 4:10 AM EDT) Neutrophil % 80.3(H) 34.0 - 71.0 % CERNER MILLENNIUM Neutrophil Absolute 10.31(H) 1.50 - 6.30 x10(3)/mc L CERNER MILLENNIUM Lymph % 11.5(L) 19.0 - 53.0 % CERNER MILLENNIUM Lymphocytes Abs 1.5 1.0 - 3.6 x10(3)/mc L CERNER MILLENNIUM Monocyte % 7.5 4.0 - 13.0 % CERNER MILLENNIUM Monocyte Abs 1.0 0.2 - 1.0 x10(3)/mc L CERNER MILLENNIUM Eos % 0.2 0.0 - 7.0 % CERNER MILLENNIUM Eosinophils Abs 0.0 0.0 - 0.5 x10(3)/mc L CERNER MILLENNIUM Basophil % 0.2 0.0 - 2.0 % CERNER MILLENNIUM Baso Absolute 0.0 0.0 - 0.2 x10(3)/mc L CERNER MILLENNIUM Immature Gran % 0.30 0.00 - 0.66 % CERNER MILLENNIUM Comment: Immature granulocytes(IG's)percentage and absolute count will include metamyelocytes, myelocytes, and promyelocytes. Blood smears from CBC's yielding IG's will be scanned manually for concordance. If this scan disagrees with the automated IG or if promyelocytes are noted, a manual differential will be performed. Immature Gran Absolute 0.04 0.00 - 0.05 x10(3)/mc L CERNER MILLENNIUM Blood specimen (specimen) 07/02/2010 4:10 AM EDT 07/02/2010 4:27 AM EDT Connie Pruitt MD HEMATOLOGY ORDERABLE S [facility] JOHNIEENNIUM * (ABNORMAL) CBC (07/02/2010 4:10 AM EDT) White Blood Cell 12.9(H) 4.0 - 10.0 x10(3)/mc L CERNER MILLENNIUM Red Blood Cell 5.09 4.63 - 6.08 x10(6)/mc L CERNER MILLENNIUM Hemoglobin 15.3 13.7 - 17.5 gm/dL CERNER MILLENNIUM Hematocrit 45.7 40.0 - 51.0 % CERNER MILLENNIUM Mean Cell Volume 89.8 79.0 - 92.0 fL CERNER MILLENNIUM Mean Cell Hemoglobin 30.1 25.6 - 32.2 pg CERNER MILLENNIUM Mean Cell Hemoglobin Concentration 33.5 32.0 - 36.5 gm/dL CERNER MILLENNIUM Platelet 162 145 - 370 x10(3)/mc L CERNER MILLENNIUM RDW Standard Deviation 39.9 35.0 - 46.0 fL CERNER MILLENNIUM RDW coefficient of variation 12.4 10.9 - 14.4 % CERNER MILLENNIUM Mean Platelet Volume 11.6 9.0 - 12.0 fL NURY JETTAMINATAASIF Blood specimen (specimen) 07/02/2010 4:10 AM EDT 07/02/2010 4:27 AM EDT Connie Pruitt MD HEMATOLOGY ORDERABLE S NURY DANIELSON documented in this encounter Visit Diagnoses Not on filedocumented in this encounter Care Teams Material Flow Engineer Relationship Specialty Start Date End Date Arely Landers MD [address] [place] [address] PCP - General 07/27/10 03/23/17 documented as of this encounter
--- OUTSIDE RECORDS SUMMARY | 2024-08-16 01:28 | XMS_ITS | Encounter Summary ---
Author Organization [facility] Address [facility] [place] [address] Care Team Providers Care Patient Registration Clerk Name Role Phone Arely Landers MD Primary Care Provider [phone] Encounter Details Date Type Department Care Team (Late st Contact Info) Description 07/03/2010 [place] [id number] Tk Aguilar MD [facility] [place] [address] Social History Tobacco Use Types Packs/Day Years Used Date Smoking Tobacco: Never Assessed Sex and Gender Information Value Date Recorded Sex Assigned at Not on file Gender Identity Not on file Sexual Orientation Not on file documented as of this encounter Plan of Treatment Not on file documented as of this encounter Procedures Procedure Name Priority Date/Time Associated Diagnosis Comments ELECTROLYTES PANEL Routine 07/06/2010 4: 05 PM EDT TSH Routine 07/03/2010 7:54 PM EDT documented in this encounter Results * ELECTROLYTE PANEL (07/06/2010 4:05 PM EDT) Sodium 138 135 - 145 mmol/L CERNER MILLENNIUM Potassium 4.0 3.5 - 5.0 mmol/L CERNER MILLENNIUM Comment: Please note: ??Patients with WBC >100,000 may have falsely elevated Potassium levels. ??For accurate Potassium quantification in these patients send serum separator tube (gold top) for subsequent determinations. ??Contact the Clinical Chemistry Laboratory if there are any questions. Chloride 101 98 - 107 mmol/L CERNER MILLENNIUM Carbon Dioxide 28 22 - 31 mmol/L CERNER MILLENNIUM Anion Gap 9 5 - 15 mmol/L CERNER MILLENNIUM Blood specimen (specimen) 07/06/2010 4:05 PM EDT 07/06/2010 4:25 PM EDT Tk Aguilar MD CHEMISTRY ORDERABLE S NURY JETTENNIUM * TSH (07/03/2010 7:54 PM EDT) Thyroid Stimulating Hormone 2.42 0.27 - 4.20 mcIU/mL CERNER MILLENNIUM Comment: [place] Cord Blood Reference Range: ??0.35 23.00 uIU/mL Blood specimen (specimen) 07/03/2010 7:54 PM EDT 07/03/2010 7:57 PM EDT Tk Aguilar MD CHEMISTRY ORDERABLE S Performing Organization Address City/State/[facility] Co de Phone Number NURY CORDONIUM documented in this encounter Visit Diagnoses Not on filedocumented in this encounter Care Teams Patient Registration Clerk Relationship Specialty Start Date End Date Arely Landers MD [address] [place] [id number] PCP - General 07/27/10 03/23/17 documented as of this encounter
--- OUTSIDE RECORDS SUMMARY | 2024-08-16 01:28 | XMS_ITS | Encounter Summary ---
Author Organization [facility] Address [facility] [place] [address] Care Team Providers Care Lead Teacher Name Role Phone Faviola Yusuf LILY Primary Care Provider [phone] Encounter Details Date Type Department Care Team (Latest Contact Info) Description 03/24/2017 1:29 PM EDT - 03/24/2017 11:59 PM EDT Hospital Encounter XRay at [address] [place] [address] Bill Abad MD [facility] [place] [address] Herniated lumbar intervertebral disc Discharge Disposition: Home Social History Tobacco Use Types Packs/Day Years Used Date Smoking Tobacco: Every Day Cigarettes Smokeless Tobacco: Never Sex and Gender Information Value Date Recorded Sex Assigned at Not on file Gender Identity Not on file Sexual Orientation Not on file documented as of this encounter Medications at Time of Discharge Medication Sig Dispensed Refills Start Date End Date naproxen sodium (ANAPROX) 220 mg Tablet Take 220 mg by mouth 2 times daily (with meals). xpsj-grah-rae-brg-uqh-xebq -hor [phone] mg Tablet Take by mouth. documented as of this encounter Plan of Treatment Not on file documented as of this encounter Procedures Procedure Name Priority Date/Time Associated Diagnosis Comments XR LUMBAR SPINE 2 OR 3 VIEWS Routine 03/24/2017 1:46 PM EDT Herniated lumbar intervertebral disc documented in this encounter Results * XR Lumbar Spine 2 Or 3 Views (Generic) (03/24/2017 1:46 PM EDT) Anatomical Region Laterality Modality L-spine N/A Digital Radiogra phy Impressions 03/24/2017 1:52 PM EDT No evidence of dynamic instability. Narrative 03/24/2017 1:52 PM EDT EXAMINATION: XR LUMBAR SPINE 2 OR 3 VIEWS (GENERIC) CLINICAL HISTORY: Herniated lumbar intervertebral disc. TECHNIQUE: Frontal, lateral flexion, and lateral extension radiographs of the lumbar spine were obtained. COMPARISON: Attention is also directed to lumbar spine MRI dated 12/14/2016. FINDINGS: There is a levoscoliosis of the lumbar spine. No spondylolisthesis is seen. There is no evidence of dynamic instability. Vertebral body heights and intervertebral disc space heights appear maintained. Procedure Note Shalini Powell MD - 03/24/2017 EXAMINATION: XR LUMBAR SPINE 2 OR 3 VIEWS (GENERIC) CLINICAL HISTORY: Herniated lumbar intervertebral disc. TECHNIQUE: Frontal, lateral flexion, and lateral extension radiographs of the lumbarspine were obtained. COMPARISON: Attention is also directed to lumbar spine MRI dated 12/14/2016. FINDINGS: There is a levoscoliosis of the lumbar spine. No spondylolisthesis isseen. There is no evidence of dynamic instability. Vertebral body heights and intervertebral disc space heights appear maintained. IMPRESSION No evidence of dynamic instability. Bill Abad MD IMG DX ORDERABLES documented in this encounter Visit Diagnoses Diagnosis Herniated lumbar intervertebral disc Displacement of lumbar intervertebral disc without myelopathy documented in this encounter Care Teams Lead Teacher Relationship Specialty Start Date End Date Faviola Yusuf APRN PCP - General Family Medicine 03/24/17 04/03/19 documented as of this encounter
--- OUTSIDE RECORDS SUMMARY | 2024-08-16 01:28 | XMS_ITS | Clinical Summary ---
Author Organization [facility] Address [facility] [place] [address] Care Team Providers Care Expanding Machine Operator Name Role Phone Unknown Primary Care Provider Unavailabl e Allergies Active Allergy Reactions Criticality Noted Date Comments Sulfa (Sulfonamide Antibiotics) Medications Medication Sig Dispensed Refills Start Date End Date Status naproxen sodium (ANAPROX) 220 mg Tablet Take 220 mg by mouth 2 times daily (with meals). Active pxbh-hryn-kff-yuc-johanna-c ham-hor [phone] mg Tablet Take by mouth. Active Active Problems Problem Noted Date Diagnosed Date HNP (herniated nucleus pulposus), lumbar 017 Family History Relation Status Comments Father Alive Mother Alive Sister Alive Son Alive Social History Tobacco Use Types Packs/Day Years Used Date Smoking Tobacco: Every Day Cigarettes Smokeless Tobacco: Never Sex and Gender Information Value Date Recorded Sex Assigned at Not on file Gender Identity Not on file Sexual Orientation Not on file Last Filed Vital Signs Vital Sign Reading Time Taken Comments Blood Pressure 126/69 03/24/2017 2:11 PM EDT Pulse - - Temperature - - Respiratory Rate - - Oxygen Saturation - - Inhaled Oxygen Concentration - - Weight 79.4 kg (175 lb) 03/24/2017 2:11 PM EDT Height 185.4 cm (6' 1) 03/24/2017 2:11 PM EDT Body Mass Index 23.09 03/24/2017 2:11 PM EDT Plan of Treatment Health Maintenance Due Date Last Done Comments HIV screen 2000 Hepatitis C Screening 2000 Lipid Screening 2000 Hepatitis B vaccine (0-59 yrs) (1) 2001 Tetanus/Diphtheria/Pertussis Vaccines (1 - Tdap) 09/28 Covid-19 Vaccine ( - 2023 season) 2024 Influenza (Flu) vaccine (1 o f 1 - Influenza standard series) 05/05/2024 Care Teams Expanding Machine Operator Relationship Specialty Start Date End Date Unknown None PCP - General 04/04/19
--- OUTSIDE RECORDS SUMMARY | 2024-08-16 01:28 | XMS_ITS | Clinical Summary ---
Author Organization [facility] Address [address] [place] [address] Care Team Providers Care Hosiery Looper Name Role Phone Unavailable Primary Care Provider Unavailabl e Social History Tobacco Use Types Packs/Day Years Used Date Smoking Tobacco: Never Assessed Sex and Gender Information Value Date Recorded Sex Assigned at Not on file Legal Sex Male 19:22 EDT Gender Identity Not on file Sexual Orientation Not on file Plan of Treatment Health Maintenance Due Date Last Done Comments Hepatitis C Screen 1982 Hepatitis B Vaccine (1 of 3 - 19+ 3-dose series) 09/28 COVID-19 Vaccine ( season) 2024
--- OUTSIDE RECORDS SUMMARY | 2024-08-16 01:28 | XMS_ITS | Encounter Summary ---
Author Organization [facility] Address [facility] [place] [address] Care Team Providers Care Bilingual Branch Manager Name Role Phone Arely Landers MD Primary Care Provider [phone] Encounter Details Date Type Department Care Team (Latest Contact Info) Description 12/14/2016 - 12/14/2016 11:59 PM EDT Hospital Encounter Radiology Library at [facility] [place] [address] Bill Abad MD [facility] [place] [address] Pain Discharge Disposition: Home Social History Tobacco [...] Associated Diagnosis Comments FILM LIBRARY STORAGE ONLY MR SPINE Routine 12/14/2016 12:00 AM EDT Pain documented in this encounter Results * Film Library- Storage Only MR Spine (12/14/2016 12:00 AM EDT) Narrative [facility] - 03/22/2017 9:22 AM EDT This exam is for storage only and is auto-finalizing. Bill Abad MD IM FILM LIBRARY ORD ERABLES Performing Organization Address City/State/[facility] Co de Phone Number [place], [place] documented in this encounter Visit Diagnoses Diagnosis Pain Generalized pain documented in this encounter Care Teams Bilingual Branch Manager Relationship Specialty Start Date End Date Arely Landers MD [address] [place] [address] PCP - General 07/27/10 03/23/17 documented as of this encounter
[2024-08-16 08:45] LABS: Abs Immature Grans 0.03 10^3/uL (0.0-0.06); Absolute Basophil Count 0.05 10^3/uL (0.0-0.2); Absolute Eosinophil Count 0.23 10^3/uL (0.0-0.7); Absolute Lymphocyte Count 2.25 10^3/uL (1.2-3.4); Absolute Neutrophil Count 4.14 10^3/uL (1.2-6.7); Basophils % 0.7 %; Eosinophils % 3.2 %; HCT 50.5 % (40.0-50.0); HGB 17.2 g/dL (13.5-17.5); Immature Grans % 0.4 %; Lymphocytes % 30.8 %; MCH 30.2 pg (27.0-33.0); MCHC 34.1 % (32.0-36.0); MCV 89 fL (80-95); MPV 9.9 fL (8.0-11.0); Monocytes % 8.2 %; Neutrophils % 56.7 %; Platelet Count 182 10^3/uL (130-400); RDW 11.9 % (11.8-14.1); RDW-SD 38.5 fL
[2024-08-16 08:47] LABS: ESR 1 mm/hr (0-15)
[2024-08-16 08:57] LABS: ALT 56 U/L (16-63); AST 24 U/L (15-37); Albumin 4.3 g/dL (3.4-5.0); Alkaline Phosphatase 61 U/L (46-116); Anion Gap 8.8 mmol/L (3-11); BUN 18 mg/dL (7-18); Bilirubin, Total 0.46 mg/dL (0.2-1.0); CO2 28.2 mmol/L (21.0-32.0); CREATININE 1.2 mg/dL (0.70-1.30); Calcium 9.2 mg/dL (8.5-10.1); Calculated LDL 135 mg/dL (<100); Chloride 105 mmol/L (98-107); Cholesterol 195 mg/dL (<200); Estimated GFR 77.92 (mL/min/1.73m2); Glucose 113 mg/dL (74-106); HDL Cholesterol 48 mg/dL (40-60); Magnesium 2.1 mg/dL (1.8-2.4); Potassium 4.1 mmol/L (3.5-5.1); Sodium 142 mmol/L (136-145); Total Protein 7.2 g/dL (6.4-8.2); Triglyceride 63 mg/dL (<150)
[2024-08-16 09:08] LABS: C-Reactive Protein < 0.50 mg/dL (<or=0.5)
[2024-08-16 18:25] LABS: HBs Antibody, Quant 4.1 mIU/mL (See Note); Hepatitis B Surface Ab Negative (See Note)
[2024-08-16 19:06] LABS: Hepatitis C Ab w Rflx HCV PCR Negative (Negative)
[2024-08-16 19:09] LABS: HIV-1/2 Ag & Ab Screen Negative (Negative)
[2024-08-19 09:32] LABS: Anaplasma phagocytophilum Negative (Negative); B. miyamotoi PCR Negative (Negative); Babesia divergens/MO-1 Negative (Negative); Babesia duncani Negative (Negative); Babesia microti Negative (Negative); Ehrlichia chaffeensis Negative (Negative); Ehrlichia ewingii/canis Negative (Negative); Ehrlichia muris eauclairensis Negative (Negative)
[2024-08-19 13:56] LABS: ANA Interpretation Negative (Negative)
== END 2024-08-16 01:21 | disposition home or self-care (01) ==
LOC: LBO 01:21
PROVIDERS: PCP Nurse Practitioner; Visit Provider Nurse Practitioner
DX: Z13.220 Encounter for screening for lipoid disorders (principal); Z00.00 Encounter for general adult medical examination without abnormal findings; Z01.84 Encounter for antibody response examination; Z11.59 Encounter for screening for other viral diseases; M79.10 Myalgia, unspecified site
CPT/HCPCS: 36415; 80053; 80061; 85652; 86706; 86803; 87389; 87798; 83735; 85025; 86038; 86140

== ENCOUNTER 2025-02-10 02:42 | Outpatient (CLI) | payer BC, SELFPAY ==
[2025-02-10 09:36] LABS: TSH (W/Ref FT4) 1.66 uIU/mL (0.36-3.74)
== END 2025-02-10 02:43 | disposition home or self-care (01) ==
LOC: LBO 02:42
PROVIDERS: PCP Nurse Practitioner; Visit Provider Nurse Practitioner
DX: Z83.49 Family history of other endocrine, nutritional and metabolic diseases (principal); R09.A2 Foreign body sensation, throat; Z13.228 Encounter for screening for other metabolic disorders; Z13.29 Encounter for screening for other suspected endocrine disorder; Z13.21 Encounter for screening for nutritional disorder
CPT/HCPCS: 36415; 84443